=== PATIENT | female | born 1935 | race Caucasian/White ===

== ENCOUNTER 2018-07-19 02:20 | Inpatient (IN) | payer MEDICARE, BC ==
[~2018-07-19] VITALS: Ht 157.5 cm; Wt 39.9 kg
[2018-07-19] VITALS (9 sets, daily range): BP systolic 105–146; BP diastolic 56–66
[2018-07-19] MEDS ORDERED: IPRATRPIUM/ALBUTEROL 0.5/2.5MG 3 ML NEBU. ONE (02:30)
[2018-07-19] MEDS ORDERED: NITROGLYCERIN PREMIX 250 ML IV ONE (02:45)
--- NOTE | 2018-07-19 02:45 | PHYS DOC ---
Adult General Chief Complaint Chief Complaint sob HPI HPI 82 years old female presented to the emergency department or shortness of breath , that she is been followed sick for the past week or shortness of breath got worse tonight upon arrival to the emergency department her oxygen saturation 75 % on room air. She denies any chest pain complaining of dry cough no fever no chills no urgency or frequency no hematuria Review of Systems Review of Systems Constitutional: Denies fever or chills [] Eyes: Denies change in visual acuity, redness, or eye pain [] HENT: Denies nasal congestion or sore throat [] Respiratory: Positive for shortness of breath] Cardiovascular: No additional information not addressed in HPI [] GI: Denies abdominal pain, nausea, vomiting, bloody stools or diarrhea [] : Denies dysuria or hematuria [] Musculoskeletal: Denies back pain or joint pain [] Integument: Denies rash or skin lesions [] Neurologic: Denies headache, focal weakness or sensory changes [] Endocrine: Denies polyuria or polydipsia [] All other systems were reviewed and found to be within normal limits, except as documented in this note. Current Medications Current Medications Current Medications Medications (Trade) Dose Ordered Sig/Manuel Start Time Stop Time Status Last Admin Dose Admin Acetaminophen (Tylenol) 650 mg PRN Q4HRS PRN 07/19/18 03:45 07/20/18 03:44 UNV Albuterol Sulfate (Ventolin) 10 mg 1X ONCE 07/19/18 03:00 07/19/18 03:01 DC Albuterol/ Ipratropium (Duoneb) 3 ml RTQID 07/19/18 08:00 07/20/18 07:59 UNV Furosemide (Lasix) 40 mg 1X ONCE 07/19/18 03:30 07/19/18 03:31 DC Insulin Glargine (Lantus) 20 units QHS 07/19/18 21:00 Insulin Human Regular (HumuLIN R VIAL) 5 unit 1X ONCE 07/19/18 04:00 07/19/18 04:01 Morphine Sulfate (Morphine 2mg Syringe) 2 mg PRN Q2HR PRN 07/19/18 03:45 07/20/18 03:44 UNV Nitroglycerin (Nitrostat) 0.4 mg PRN Q5MIN PRN 07/19/18 03:45 07/20/18 03:44 UNV Nitroglycerin/ Dextrose 250 ml @ 0 mls/hr 1X ONCE 07/19/18 02:45 07/19/18 02:46 DC 07/19/18 02:39 5 MLS/HR Ondansetron HCl (Zofran) 4 mg PRN Q4HRS PRN 07/19/18 03:45 07/20/18 03:44 UNV Allergies Allergies Allergies Coded Allergies Type Severity Reaction Last Updated Verified Penicillins Allergy Unknown 07/19/18 Yes Physical Exam Physical Exam Constitutional: Well developed, well nourished, no acute distress, non-toxic appearance. [] HENT: Normocephalic, atraumatic, bilateral external ears normal, oropharynx moist, no oral exudates, nose normal. [] Eyes: PERRLA, EOMI, conjunctiva normal, no discharge. [] Neck: Normal range of motion, no tenderness, supple, no stridor. [] Cardiovascular: Tachycardia Heart rate regular rhythm, no murmur [] Lungs & Thorax: Crackles bilaterally Abdomen: Bowel sounds normal, soft, no tenderness, no masses, no pulsatile masses. [] Skin: Warm, dry, no erythema, no rash. [] Back: No tenderness, no CVA tenderness. [] Extremities: No tenderness, no cyanosis, no clubbing, ROM intact, no edema. [] Neurologic: Alert and oriented X 3, normal motor function, normal sensory function, no focal deficits noted. [] Psychologic: Affect normal, judgement normal, mood normal. [] Current Patient Data Vital Signs Vital Signs Date Time Temp Pulse Resp B/P (MAP) Pulse Ox O2 Delivery O2 Flow Rate FiO2 07/19/18 02:36 115 24 166/91 (116) 100 BiPAP/CPAP 07/19/18 02:20 97.0 Lab Results Laboratory Tests Test 07/19/18 02:41 White Blood Count 14.0 x10^3/uL (4.0-11.0) H Red Blood Count 4.82 x10^6/uL (3.50-5.40) Hemoglobin 13.7 g/dL (12.0-15.5) Hematocrit 42.7 % (36.0-47.0) Mean Corpuscular Volume 89 fL (79-100) Mean Corpuscular Hemoglobin 28 pg (25-35) Mean Corpuscular Hemoglobin Concent 32 g/dL (31-37) Red Cell Distribution Width 14.4 % (11.5-14.5) Platelet Count 265 x10^3/uL (140-400) Neutrophils (%) (Auto) 79 % (31-73) H Lymphocytes (%) (Auto) 15 % (24-48) L Monocytes (%) (Auto) 4 % (0-9) Eosinophils (%) (Auto) 2 % (0-3) Basophils (%) (Auto) 1 % (0-3) Neutrophils # (Auto) 11.1 x10^3uL (1.8-7.7) H Lymphocytes # (Auto) 2.1 x10^3/uL (1.0-4.8) Monocytes # (Auto) 0.6 x10^3/uL (0.0-1.1) Eosinophils # (Auto) 0.2 x10^3/uL (0.0-0.7) Basophils # (Auto) 0.1 x10^3/uL (0.0-0.2) Blood pH 7.31 (7.35-7.45) L Blood Gas PCO2 36 mmHg (35-45) Blood Gas PO2 111 mmHg (71-100) H Blood Gas HCO3 18 mmol/L (22-26) L Arterial Bld O2 Saturation (Calc) 98 % (92-99) FiO2 60 % Sodium Level 137 mmol/L (136-145) Potassium Level 3.6 mmol/L (3.5-5.1) Chloride Level 102 mmol/L (98-107) Carbon Dioxide Level 19 mmol/L (21-32) L Anion Gap 16 (6-14) H Blood Urea Nitrogen 23 mg/dL (7-20) H Creatinine 1.3 mg/dL (0.6-1.0) H Estimated GFR (Cockcroft-Gault) 39.1 Glucose Level 377 mg/dL (70-99) H Calcium Level 8.5 mg/dL (8.5-10.1) ZT-Rgx-G-Type Natriuretic Peptide 75880 pg/mL (0-449) H EKG EKG Sinus tachycardia[] Radiology/Procedures Radiology/Procedures Congestion[] Course & Med Decision Making Course & Med Decision Making Pertinent Labs and Imaging studies reviewed. (See chart for details) [] Final Impression Final Impression Patient to be admitted to the intensive care unit will continue BiPAP, breathing treatments, nitroglycerin drip, Lasix[] Problems: (1) Acute exacerbation of congestive heart failure Qualifiers: Qualified Codes: I50.9 - Heart failure, unspecified (2) Respiratory failure Qualifiers: Qualified Codes: J96.01 - Acute respiratory failure with hypoxia (3) Respiratory failure with hypoxia Qualifiers: Qualified Codes: J96.01 - Acute respiratory failure with hypoxia Dragon Disclaimer Dragon Disclaimer This electronic medical record was generated, in whole or in part, using a voice recognition dictation system. CHANCE PEREZ MD Jul 19, 2018 02:45
[2018-07-19] MEDS ORDERED: ALBUTEROL SULFATE 2.5 MG/3 ML NEBU. CONT NEB ONE (03:00)
[2018-07-19 03:08] LABS: BASO # 0.1 x10^3/uL (0.0-0.2); BASO % 1 % (0-3); EOS # 0.2 x10^3/uL (0.0-0.7); EOS % 2 % (0-3); HEMATOCRIT 42.7 % (36.0-47.0); HEMOGLOBIN 13.7 g/dL (12.0-15.5); LYMPH # 2.1 x10^3/uL (1.0-4.8); LYMPH % 15 % (24-48); MEAN CORPUSCULAR HEMOGLOBIN 28 pg (25-35); MEAN CORPUSCULAR HGB CONC 32 g/dL (31-37); MEAN CORPUSCULAR VOLUME 89 fL (79-100); MONO # 0.6 x10^3/uL (0.0-1.1); MONO % 4 % (0-9); NEUT # 11.1 x10^3uL (1.8-7.7); NEUT % 79 % (31-73); PLATELET COUNT 265 x10^3/uL (140-400); RED BLOOD COUNT 4.82 x10^6/uL (3.50-5.40); RED CELL DISTRIBUTION WIDTH 14.4 % (11.5-14.5)
--- NOTE | 2018-07-19 03:08 | EKG ---
[address] [address] Test Date: 2018-07-19 Test Time: 03:00:38 Pat Name: RADHA PEPPER Department: Room: Gender: F Draw Operator: : 1935 Requested By: CHANCE PEREZ Order Number: [id number] Reading MD: Mikey Erwin Measurements Intervals [place] Rate: 110 P: 97 IL: 148 QRS: -43 QRSD: 116 T: 109 QT: 348 QTc: 477 Interpretive Statements SINUS TACHYCARDIA LEFT ATRIAL ABNORMALITY ABNORMAL LEFT AXIS DEVIATION LEFT ANTERIOR FASCICULAR BLOCK LVH WITH REPOLARIZATION ABNORMALITY QRS(T) CONTOUR ABNORMALITY CONSISTENT WITH ANTERIOR INFARCT AGE UNDETERMINED ABNORMAL ECG Electronically Signed On 07-23-2018 10:51:08 TRIMMING OPERATOR by Mikey Erwin
[2018-07-19 03:22] LABS: CALCIUM 8.5 mg/dL (8.5-10.1); CREATININE 1.3 mg/dL (0.6-1.0); GFR 39.1; POTASSIUM 3.6 mmol/L (3.5-5.1)
[2018-07-19] MEDS ORDERED: FUROSEMIDE 40 MG/4 ML VIAL IVP ONE (03:30)
[2018-07-19 03:33] LABS: BGAS PH 7.31 (7.35-7.45)
[2018-07-19] MEDS ORDERED: NITROGLYCERIN SUBLINGUAL 0.4 MG BOTTLE OF 25. SL PRN (03:45)
[2018-07-19] MEDS ORDERED: MORPHINE SULFATE 2 MG/ML DISP.SYRIN. IV PRN (03:45)
[2018-07-19] MEDS ORDERED: ONDANSETRON PF 4 MG/2 ML VIAL. IV PRN (03:45)
[2018-07-19] MEDS ORDERED: ACETAMINOPHEN 325 MG TABLET PO PRN (03:45)
[2018-07-19] MEDS ORDERED: INSULIN REGULAR 100 UNIT/ML 3ML VIAL. IV ONE (04:00)
--- NOTE | 2018-07-19 06:50 | RAD ---
Chest radiograph 07/19/2018 1:46 AM INDICATION: Respiratory failure COMPARISON: None available TECHNIQUE: Frontal view of the chest is provided. FINDINGS: The cardiomediastinal silhouette is within normal limits. Trace pleural effusions. No pulmonary vascular congestion. Patchy opacities identified in the right perihilar distribution. Findings may represent pulmonary infiltrate versus pulmonary vasculature. Suspect right hilar lymphadenopathy. Levoconvex scoliosis of the thoracic spine is noted. IMPRESSION: There is a patchy masslike opacity in the right perihilar distribution. Suspect right hilar lymphadenopathy. Findings may be secondary to pneumonia, however underlying malignancy is a differential consideration. Further evaluation with chest CT may be of benefit. Mild pulmonary vascular congestion with trace bilateral pleural effusions as may be seen with congestive heart failure. Electronically signed by: Veronica Wise MD (07/19/2018 6:47 AM) [facility]
[2018-07-19 07:13] LABS: INFLUENZA A PATIENT NEGATIVE (NEGATIVE); INFLUENZA B PATIENT NEGATIVE (NEGATIVE)
[2018-07-19] MEDS: IPRATRPIUM/ALBUTEROL 0.5/2.5MG 3 ML NEBU. NEB SCH ×3 (08:00→16:00)
[2018-07-19 09:11] LABS: CLARITY,URINE CLEAR; COLOR,URINE YELLOW
[2018-07-19 09:12] LABS: BACTERIA,URINE 0 /HPF (0-FEW); BILIRUBIN,URINE NEG (NEG); GLUCOSE,URINE NEG (NEG); HYALINE CASTS, URINE OCC /HPF; NITRITE,URINE NEG (NEG); RBC,URINE 0 /HPF (0-2); UROBILINOGEN,URINE 0.2 mg/dL (0.2 mg/dL); WBC,URINE 0 /HPF (0-4)
--- NOTE | 2018-07-19 10:22 | CONS ---
DATE OF CONSULTATION: 07/19/2018 REASON FOR CONSULTATION: Heart failure. HISTORY OF PRESENT ILLNESS: The patient is a pleasant 82-year-old woman without any significant past medical history, who apparently was struggling with some shortness of breath and cough over the course of the last 2 weeks. She felt that it may have been simply related to a chest cold and was treating this symptomatically. Yesterday evening, she had significant worsening of her shortness of breath, which prompted her to arrive in the ER upon which she was noted to be significantly hypoxic at 75% on room air and was treated appropriately with BiPAP and diuretic therapy. She was also started on low dose nitroglycerin therapy due to some mild hypertension. In speaking with the patient, she reports over the course of the last 2-4 weeks, she has had some exertional dyspnea with activities around the house such as shoveling snow or doing some cleaning. She otherwise denies any prior cardiac history. Upon arrival to the floor, she has done well overnight after being transitioned off of BiPAP. She is currently on 2 liters via nasal cannula and saturating well. Her IV diuretics have also improved her symptoms. PAST MEDICAL HISTORY: No significant history. SOCIAL HISTORY: The patient lives in [place]. She denies any alcohol, tobacco or illicit drug use. She has 1 son and several daughters in the area. FAMILY HISTORY: Noncontributory. ALLERGIES: PENICILLIN. REVIEW OF SYSTEMS: Negative for 10 out of 14 systems reviewed, unless otherwise mentioned above in HPI. CURRENT CARDIAC MEDICATIONS: None. PHYSICAL EXAMINATION: VITAL SIGNS: Afebrile, heart rate 100, respiratory rate 19, blood pressure 110/60, pulse ox 96% on 2 liters via nasal cannula. GENERAL: She is hard of hearing, but otherwise alert and oriented, in no acute distress. She is mildly tachypneic. HEAD AND NECK: Unremarkable. Neck veins were not well visualized. HEART: Regular rate and rhythm with a 3/6 systolic murmur at the right upper sternal border and 2/6 systolic murmur at the left lower sternal border. ABDOMEN: Soft, nontender, nondistended. EXTREMITIES: No obvious clubbing, cyanosis or edema with 1+ pulses throughout. NEUROLOGIC: No focal deficits. MUSCULOSKELETAL: No obvious trauma. DIAGNOSTIC STUDIES: Creatinine 1.3, GFR 39. BNP is 10,327. Troponin initial evaluation was 0.224. ABG was 7.31/36/111 on FiO2 of 60%. CBC revealed normal hemoglobin and platelet count. Chest x-ray demonstrated small bilateral pleural effusions with patchy airspace disease in the right perihilar space. Bedside echocardiogram demonstrated significant LV dysfunction with ejection fraction estimated to be about 20-25%. She likely also has moderate aortic stenosis with a peak velocity of approximately 3 meters per second. EKG demonstrates sinus tachycardia with left axis deviation and left ventricular hypertrophy along with prior probable anteroseptal infarct. IMPRESSION: 1. Acute on chronic systolic and diastolic heart failure, likely secondary to ischemic cardiomyopathy. 2. Rule out infectious source as a source of her dyspnea. RECOMMENDATIONS: Given her lack of any significant prior cardiac history, new onset cardiomyopathy would be appropriate to consider coronary angiography. I discussed the risks and benefits with the patient and we will plan for transfer to [facility] for a cardiac catheterization tomorrow after optimization of her medical therapy and volume status over the next 24 hours. Thank you for this consultation. MAKENNA STANTON MD DR: ELIZABETH/raphael JOB#: [id number] / [id number]
--- NOTE | 2018-07-19 11:36 | SSS ---
ADMIT DATE: 07/19/2018 HISTORY OF PRESENT ILLNESS: The patient is an 82-year-old female patient who last saw her primary care physician about 3 years ago for a visit. She is not on any medication except multivitamins [id number]. She started complaining of shortness of breath and cough that she attributes to her cold that started about a week ago. At 2:00 in the morning, her shortness of breath has worsened. She went out of her house for breeze, but her shortness of breath has worsened and she basically drove herself to the Emergency Room. By the time she arrived to the Emergency Room, she was extremely hypoxic with an oxygen saturation of only 75% on room air. However, she denied any chest pain. Did complain of dry cough. No fever, chills, or rigors. She was extensively investigated in the Emergency Room and was found to have leukocytosis with a white cell count of 14,000. Her chest x-ray showed that there is a patchy mass-like opacity in the right perihilar distribution, suspect right hilar lymphadenopathy. Finding may be secondary to pneumonia; however, underlying malignancy is a differential consideration and further evaluation with chest x-ray was recorded. Mild pulmonary vascular congestion with trace bilateral pleural effusion as may be seen with congestive heart failure. Her cardiac enzyme showed that her troponin was elevated at 0.224. She was basically acidotic. Her blood sugar was high at 377. Lactic acid was high at 3 and her blood gases showed that she is in acute hypoxic. She actually showed that she has metabolic acidosis with a pH of 7.31 and bicarbonate of 18. Her Influenza A and B are negative. Urinalysis was unremarkable and she seemed to be in what seemed to be mild diabetic ketoacidosis as her anion gap is slightly elevated at 16 and her lactic acid was high at 33 with the blood sugar of 377. She was admitted and was started on IV antibiotic and also in the form of Levaquin as she is allergic to PENICILLIN and started also on insulin as well as nebulized albuterol and Atrovent. She was seen by Dr. Hu who apparently did an echocardiogram, which showed that she has cardiomyopathy and aortic stenosis and the plan was to transfer her to [facility] for cardiac catheterization; however, she would need obviously CT scan of the chest to further elucidate the finding on her chest x-ray. PAST MEDICAL HISTORY: Unremarkable. The patient did not know that she has ever been diagnosed with diabetes, hypertension, or hyperlipidemia. She has never had any documented myocardial infarction. She said she has never been told that she has problem with her heart valves or rheumatic fever. PAST SURGICAL HISTORY: Significant for only dental implants. ALLERGIES: She is allergic to PENICILLIN. MEDICATIONS: She is on [id number] multivitamins and fish oil. FAMILY HISTORY: She has 2 sisters and 1 brother. Her brother has bronchial asthma, 1 sister has anxiety disorder, and the other sister is seemingly healthy. Her father at the age of 60 because of liver cancer and mother at the age of 60 because of gallbladder cancer. SOCIAL HISTORY: She is , lives on her own. She has 1 son and 2 daughters. She never smoked. Drinks half a glass of wine once a week. 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 PHYSICAL EXAMINATION: GENERAL: On examining her, she was sitting up in her bed, in no apparent respiratory distress. The only complaint offered is back pain. She denied actually any chest pain or shortness of breath. She was pale, extremely cachectic with a body mass index only 16.1 kilogram per square meter. There was no jaundice, no cyanosis, no lymphadenopathy, no thyromegaly. No jugular venous distention. No lower limb edema. VITAL SIGNS: Her heart rate was 100, blood pressure was 110/66, temperature was 97.7, respiratory rate was 19 and oxygen saturation was 96% on 2 liters of oxygen. HEAD, EYES, EARS, NOSE, AND THROAT: Showed normocephalic, atraumatic. NECK: Supple. HEART: Showed normal first and second heart sounds with no gallop, rub, or murmur. CHEST: Showed central trachea, equally reduced expansion, reduced air entry, vesicular breath sounds with crepitation mostly in the left side. ABDOMEN: Her abdomen was scaphoid, soft, nontender. No guarding or rigidity. No organomegaly. All hernial orifices intact. Bowel sounds normal. NEUROLOGIC: She is very hard of hearing. Otherwise, all cranial nerves are intact. She moves all extremities without difficulty. She ambulates without assistance or assistive devices. In fact, she drove herself to the hospital early this morning. LABORATORY DATA: Her lab work showed that her serum sodium was 137, potassium 3.6, chloride 102, bicarbonate 19, anion gap of 16, BUN 23, creatinine 1.3, estimated GFR was 39 mL per minute. His glucose was 377, calcium was 8.5. His lactic acid was 3. Calcium was 8.5. Troponin was 0.224. His beta-natriuretic peptide was 10,327. Her white cell count was 14,000, hemoglobin 13.7, hematocrit 42.7, MCV 89, and platelet count 265,000. Her blood gases showed her pH was 7.31, pCO2 of 36, pO2 of 111. Her bicarbonate was 18 and oxygen saturation was 98% on FiO2 of 60%. Urinalysis was unremarkable. It showed the urine was yellow, clear with a pH of 5, specific gravity of 1.010. The urine was negative for protein, glucose, ketones, blood, nitrite, and leukocyte esterase. There are no RBCs, no WBCs, and very few bacteria. His influenza A and B were negative. Her chest x-ray showed that the cardiomediastinal silhouette is within normal limits. Trace pleural effusion. No pulmonary vascular congestion. Patchy opacities identified in the right perihilar distribution. Finding may represent pulmonary infiltrate versus pulmonary vasculature, suspect right hilar lymphadenopathy. Levoconvex scoliosis of the thoracic spine is noted. IMPRESSION: The patient has a patchy mass-like opacity in the right perihilar distribution, suspect right hilar lymphadenopathy. Findings may be secondary to pneumonia; however, underlying malignancy is a differential consideration. Further evaluation with chest CT may be of benefit. Mild pulmonary vascular congestion with trace bilateral pleural effusion as may be seen with congestive heart failure. PLAN: The patient has metabolic acidosis with probably lactic acidosis and perhaps also mild diabetic ketoacidosis. She has pneumonia, cardiomyopathy, congestive heart failure, and aortic stenosis. The patient will be transferred to ICU at [facility]. We will continue with IV antibiotic. I will start her on insulin drip and also consult the cardiology team and decide on further management accordingly. MOON SALAS MD DR: RUDY/raphael JOB#: [id number] / [id number]
[2018-07-19 19:06] LABS: HEMOGLOBIN A1C 5.7 % (4.8-5.6)
[2018-07-19] MEDS ORDERED: INSULIN GLARGINE 300 UNITS/3 ML INSULN.PEN. SQ SCH (21:00)
== END 2018-07-19 17:19 | disposition short-term general hospital (02) | DRG 871 ==
LOC: ER 02:20 → ICU 03:23
PROVIDERS: ADMIT Internal Medicine; ATTEND Internal Medicine
PROC: 5A09357 Assistance with Respiratory Ventilation, Less than 24 Consecutive Hours, Continuous Positive Airway Pressure (ICD-10-PCS; principal; 2018-07-19)
DX: A41.9 Sepsis, unspecified organism (principal); E11.10 Type 2 diabetes mellitus with ketoacidosis without coma; J18.9 Pneumonia, unspecified organism; J96.01 Acute respiratory failure with hypoxia; I50.43 Acute on chronic combined systolic (congestive) and diastolic (congestive) heart failure; I11.0 Hypertensive heart disease with heart failure; D72.829 Elevated white blood cell count, unspecified; I25.5 Ischemic cardiomyopathy; I35.0 Nonrheumatic aortic (valve) stenosis; Z80.0 Family history of malignant neoplasm of digestive organs; Z79.899 Other long term (current) drug therapy; Z88.0 Allergy status to penicillin; Z82.5 Family history of asthma and other chronic lower respiratory diseases
CPT/HCPCS: 36415; 36600; 71045; 80048; 81001; 82803; 82947; 83036; 83605; 83880; 84484; 85025; 87040; 87449; 87641; 87804; 93005; 94640; 94660; 96365; 96375; J1815; J1940; J1956; J3490; J7613; J7620; 99285-25

== ENCOUNTER → 2018-10-11 | Outpatient (CLI) | payer MEDICARE, BC ==
[2018-07-19 16:33] VITALS: BP 116/57
--- NOTE | 2018-10-11 13:03 | RAD ---
EXAM: Chest, 2 views. HISTORY: Cough. COMPARISON: 07/19/2018 FINDINGS: 2 views of the chest are obtained. There is no infiltrate, pleural effusion or pneumothorax. There is a prominent cardiac silhouette and tortuous thoracic aorta. There is suspected right apical pleural parenchymal scarring. There are few calcified granulomas. There is hyperinflation due to inspiratory effort or emphysema. IMPRESSION: No acute pulmonary finding. Electronically signed by: Stefany Spicer MD (10/11/2018 1:00 PM) [facility]
[2018-10-11 14:46] LABS: BASO % 1 % (0-3); EOS # 0.1 x10^3/uL (0.0-0.7); EOS % 2 % (0-3); HEMATOCRIT 40.9 % (36.0-47.0); HEMOGLOBIN 13.3 g/dL (12.0-15.5); LYMPH % 24 % (24-48); MEAN CORPUSCULAR HEMOGLOBIN 29 pg (25-35); MEAN CORPUSCULAR HGB CONC 33 g/dL (31-37); MEAN CORPUSCULAR VOLUME 89 fL (79-100); MONO # 1.1 x10^3/uL (0.0-1.1); MONO % 13 % (0-9); NEUT # 5.2 x10^3uL (1.8-7.7); NEUT % 61 % (31-73); PLATELET COUNT 232 x10^3/uL (140-400); RED BLOOD COUNT 4.62 x10^6/uL (3.50-5.40); RED CELL DISTRIBUTION WIDTH 14.9 % (11.5-14.5); WHITE BLOOD COUNT 8.4 x10^3/uL (4.0-11.0)
[2018-10-11 15:09] LABS: CALCIUM 10.6 mg/dL (8.5-10.1); CREATININE 1.4 mg/dL (0.6-1.0); GFR 35.8; POTASSIUM 3.5 mmol/L (3.5-5.1)
== END | disposition home or self-care (01) ==
LOC: LAB 12:31
PROVIDERS: ATTEND Family Medicine
DX: I11.0 Hypertensive heart disease with heart failure (principal); I50.43 Acute on chronic combined systolic (congestive) and diastolic (congestive) heart failure; J84.10 Pulmonary fibrosis, unspecified; I77.1 Stricture of artery
CPT/HCPCS: 36415; 71046; 80048; 83880; 85025

== ENCOUNTER → 2019-05-01 | Outpatient (CLI) | payer MEDICARE, BC ==
[2018-07-19 16:33] VITALS: BP 116/57
--- NOTE | 2019-05-02 13:07 | CARD ---
MR#: [id number] Date of Study: 05/01/2019 Ordering Physician: MAKENNA STANTON, Referring Physician: MAKENNA STANTON, Tech: Rebeca Espinal DEVANTE APPROVED REPORT EXAM: Two-dimensional and M-mode echocardiogram with Doppler and color Doppler. Other Information Quality : GoodHR: 77bpm Rhythm : NSR INDICATION Cardiomyopathy 2D DIMENSIONS RVDd2.5 (2.9-3.5cm)Left Atrium(2D)3.0 (1.6-4.0cm) IVSd1.0 (0.7-1.1cm)Aortic Root(2D)3.0 (2.0-3.7cm) LVDd4.8 (3.9-5.9cm)LVOT Diameter2.0 (1.8-2.4cm) PWd0.9 (0.7-1.1cm)LVDs3.7 (2.5-4.0cm) FS (%) 22.0 %SV47.5 ml LVEF(%)44.4 (>50%) M-Mode DIMENSIONS Aortic Root2.93 (2.2-3.7cm) Aortic Valve AoV Peak Balta.173.1cm/sAoV VTI36.4cm AO Peak GR.12.0mmHgLVOT Peak Balta.87.0cm/s LVOT VTI 18.57cmAO Mean GR.6mmHg ROGER (VMAX)1.58ya5KXY (VTI)1.57cm2 AI P 1/2 Iziw263pi Mitral Valve MV E Kslnmsqa40.7cm/sMV DECEL MKIC820vw MV A Przwimgf50.3cm/sE/A Ratio0.8 Pulmonary Valve PV Peak Akuussay078.2cm/sPV Peak Grad.5mmHg Tricuspid Valve TR P. Otuurlel471pu/sRAP CPOWRWXW2nsAp TR Peak Gr.30eoUjBXFE04jiUz LEFT VENTRICLE The left ventricle is normal size. There is normal left ventricular wall thickness. The left ventricu lar systolic function is moderately impaired. The Ejection Fraction is 35-40%. There is global hypoki nesis of the left ventricle. Transmitral Doppler flow pattern is Grade I-abnormal relaxation pattern. RIGHT VENTRICLE The right ventricle is normal size. There is normal right ventricular wall thickness. The right ventr icular systolic function is normal. ATRIA The left atrium size is normal. The right atrium size is normal. The interatrial septum is intact wit h no evidence for an atrial septal defect or patent foramen ovale as noted on 2-D or Doppler imaging. AORTIC VALVE The aortic valve is thickened but opens well. The aortic valve is trileaflet. Doppler and Color Flow revealed moderate aortic regurgitation. There is no significant aortic valvular stenosis. There is no aortic valvular vegetation. MITRAL VALVE The mitral valve is thickened but opens well. There is no evidence of mitral valve prolapse. There is no mitral valve stenosis. Doppler and Color-flow revealed trace mitral regurgitation. TRICUSPID VALVE The tricuspid valve is normal in structure and function. Doppler and Color Flow revealed trace tricus pid regurgitation. The PA pressure was estimated at 22 mmHg. There is no tricuspid valve prolapse or vegetation. There is no tricuspid valve stenosis. PULMONIC VALVE The pulmonic valve is not well visualized. GREAT VESSELS The aortic root is normal in size. 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 The IVC is normal in size and collapses >50% with inspiration. PERICARDIAL EFFUSION There is no evidence of significant pericardial effusion. Critical Notification Critical Value: No <Conclusion> The left ventricular systolic function is moderately impaired. The Ejection Fraction is 35-40%. Transmitral Doppler flow pattern is Grade I-abnormal relaxation pattern. Moderate aortic regurgitation. Trace mitral regurgitation. Trace tricuspid regurgitation. The PA pressure was estimated at 22 mmHg. 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 There is no evidence of significant pericardial effusion. Signed by : Mikey Erwin, Electronically Approved : 05/01/2019 13:41:19
== END | disposition home or self-care (01) ==
LOC: ECHO 12:43
PROVIDERS: ATTEND Internal Medicine Cardiovascular Disease
DX: I35.1 Nonrheumatic aortic (valve) insufficiency (principal); I42.8 Other cardiomyopathies; I42.9 Cardiomyopathy, unspecified
CPT/HCPCS: 93306

== ENCOUNTER 2021-02-04 05:59 | Emergency (ER) | payer MEDICARE, BC ==
[~2021-02-04] VITALS: Ht 157.5 cm; Wt 38.1 kg
[2021-02-04 05:59] VITALS: BP 132/77
[2021-02-04] MEDS ORDERED: ATROPINE SULFATE 1 MG VIAL ONE ×2 (06:02→06:30)
--- NOTE | 2021-02-04 06:20 | PHYS DOC ---
Past History Past Medical History: Other Past Surgical History: Other Alcohol Use: None Drug Use: None Adult General HPI HPI Patient is a 85-year-old female presenting in cardiac arrest. Nothing is known about patient. She was found in ER parking lot facedown in pool of blood. Was found by ER staff and brought into ER for evaluation, is nonverbal, GCS 3. Initially bradycardic with a pulse, later deteriorated into PEA and CODE BLUE ensued Review of Systems Review of Systems Unobtainable due to cardiac arrest Current Medications Current Medications Current Medications Medications (Trade) Dose Ordered Sig/Manuel Start Time Stop Time Status Last Admin Dose Admin Atropine Sulfate (Atropine Sulfate) 1 mg STK-MED ONCE 02/04/21 06:02 02/04/21 06:02 DC Allergies Allergies Allergies Coded Allergies Type Severity Reaction Last Updated Verified Penicillins Allergy Unknown 07/19/18 Yes Physical Exam Physical Exam Constitutional: GCS 3. Toxic appearing. Malnourished and frail HEENT: Head: Normocephalic with mild hematoma to left forehead TMs clear, no hemotympanum Conjunctivae and EOM are normal. Pupils are equal, round, and minimally reactive to light. Oropharynx is clear and dry with poor dentition OP clear, no blood, no malocclusion, dentition intact Nares clear, no nasal septal hematoma Midface stable Neck: C-spine midline nontender, no step-offs Cardiovascular: Bradycardic rate, regular rhythm and normal heart sounds. Pulmonary/Chest: Lips cyanotic, initial oxygen reading 69% on room air, agonal breaths Abdominal: Soft. Bowel sounds are normal. Pt exhibits no distension. There is no tenderness. Musculoskeletal: No bony tenderness to extremities, no deformities, full passive ROM extremities Chest wall stable Pelvis stable and non-tender No vertebral TTP and spine without stepoffs Neurological: GCS 3 Not moving all extremities willfully, is not able to wiggle all fingers and toes or follow other commands Downgoing toes bilaterally Unable to participate in full neuro examination Skin: Skin is warm and dry. No superficial abrasion noted to left anterior shoulder, left forehead as noted above, and right hand Psychiatric: Behavior is appropriate for situation Current Patient Data Vital Signs Vital Signs Date Time Temp Pulse Resp B/P (MAP) Pulse Ox O2 Delivery O2 Flow Rate FiO2 02/04/21 05:59 93.6 30 9 132/77 (95) 30 Room Air Vital Signs Date Time Temp Pulse Resp B/P (MAP) Pulse Ox O2 Delivery O2 Flow Rate FiO2 02/04/21 05:59 93.6 30 9 132/77 (95) 30 Room Air Lab Results Laboratory Tests Test 02/04/21 06:01 02/04/21 06:03 02/04/21 06:28 02/04/21 06:45 Glucose (Fingerstick) 95 mg/dL Sodium Level 146 mmol/L Potassium Level 4.2 mmol/L Chloride Level 108 mmol/L Carbon Dioxide Level 17 mmol/L Anion Gap 21 Blood Urea Nitrogen 16 mg/dL Creatinine 1.5 mg/dL Estimated GFR (Cockcroft-Gault) 32.9 BUN/Creatinine Ratio 11 Glucose Level 186 mg/dL Calcium Level 9.4 mg/dL Total Bilirubin 0.3 mg/dL Aspartate Amino Transf (AST/SGOT) 28 U/L Alanine Aminotransferase (ALT/SGPT) 34 U/L Alkaline Phosphatase 88 U/L Troponin I Quantitative 0.029 ng/mL TD-Ged-S-Type Natriuretic Peptide 28571 pg/mL Total Protein 7.3 g/dL Albumin 3.5 g/dL Albumin/Globulin Ratio 0.9 Urine Opiates Screen Neg Urine Methadone Screen Neg Urine Barbiturates Neg Urine Phencyclidine Screen Neg Urine Amphetamine/Methamphetamine Neg Urine Benzodiazepines Screen Neg Urine Cocaine Screen Neg Urine Cannabinoids Screen Neg Urine Ethyl Alcohol Neg White Blood Count 8.1 x10^3/uL Red Blood Count 3.35 x10^6/uL Hemoglobin 9.9 g/dL Hematocrit 31.6 % Mean Corpuscular Volume 94 fL Mean Corpuscular Hemoglobin 30 pg Mean Corpuscular Hemoglobin Concent 31 g/dL Red Cell Distribution Width 15.8 % Platelet Count 173 x10^3/uL Neutrophils (%) (Auto) 38 % Lymphocytes (%) (Auto) 53 % Monocytes (%) (Auto) 6 % Eosinophils (%) (Auto) 3 % Basophils (%) (Auto) 1 % Neutrophils # (Auto) 3.1 x10^3uL Lymphocytes # (Auto) 4.3 x10^3/uL Monocytes # (Auto) 0.5 x10^3/uL Eosinophils # (Auto) 0.2 x10^3/uL Basophils # (Auto) 0.1 x10^3/uL Segmented Neutrophils % 30 % Band Neutrophils % 2 % Lymphocytes % 64 % Monocytes % 2 % Eosinophils % 1 % Metamyelocytes % 1 % Platelet Estimate Adequate Prothrombin Time 12.4 SEC Prothromb Time International Ratio 1.2 Activated Partial Thromboplast Time 35 SEC Test 02/04/21 07:35 Blood Gas pH 7.26 Blood Gas PCO2 31 mmHg Blood Gas PO2 94 mmHg Blood Gas HCO3 14 mmol/L Arterial Bld O2 Saturation (Calc) 97 % FiO2 50 % Current Medications Medications (Trade) Dose Ordered Sig/Manuel Route PRN Reason Start Time Stop Time Status Last Admin Dose Admin Atropine Sulfate (Atropine Sulfate) 1 mg STK-MED ONCE .ROUTE 02/04/21 06:02 02/04/21 06:02 DC Iohexol (Omnipaque 300 Mg/ml) 75 ml 1X ONCE IV 02/04/21 06:45 02/04/21 06:46 DC 02/04/21 06:45 Info (Do NOT chart on this entry -- for MONITORING) 1 each PRN DAILY PRN MC SEE COMMENTS 02/04/21 06:45 02/06/21 06:44 Midazolam HCl (Versed) 5 mg STK-MED ONCE .ROUTE 02/04/21 07:04 02/04/21 07:05 DC Midazolam HCl 50 mg/Sodium Chloride 50 ml @ 1 mls/hr 1X ONCE IV 02/04/21 07:30 02/06/21 09:29 Fentanyl Citrate 30 ml @ 2.5 mls/hr CONT PRN IV SEVERE PAIN 7-10 02/04/21 07:30 Furosemide (Lasix) 40 mg 1X ONCE IVP 02/04/21 08:30 02/04/21 08:35 DC EKG EKG Initial EKG ordered and interpreted by myself at 0603 hrs. as sinus bradycardia at 28 bpm, QT 588, otherwise intervals unremarkable, left axis deviation, T wave inversion noted in lead aVL, no STEMI Subsequent EKG after ROSC obtained ordered and interpreted by myself as sinus tachycardia with a rate of 118 bpm, unremarkable intervals, left axis deviation, T wave inversion noted in lead aVL and V5, no STEMI Repeat EKG ordered and interpreted by myself at 0808 hrs. as sinus rhythm at 99 bpm, prolonged QTC at 488 otherwise unremarkable intervals, left axis deviation, T wave inversions noted in lead I, aVL, V5 and V6. No STEMI Radiology/Procedures Radiology/Procedures XR CHEST 1V History: Reason: cardiac arrest, intubated, et and og placement / Spl. Instructions: / History: Comparison: October 11, 2018 Findings: Diffuse interstitial and alveolar opacities. Small left pleural effusion. No pneumothorax. Unchanged heart size. Biapical pleural thickening, right greater than left. Multilevel thoracolumbar spondylosis with rightward curvature. Endotracheal tube with tip 5.3 cm above the byron. Enteric tube with tip projecting over the proximal stomach and side port within the distal esophagus. Impression: 1. Diffuse interstitial and alveolar opacities, may represent pulmonary edema or infection. 2. Interval placement of enteric tube with tip projecting over the proximal stomach and side port within the distal esophagus. Recommend advancement. Electronically signed by: Familia Dixon DO (02/04/2021 6:49 AM) [facility] ////////////////////////////////////// STUDY: CT head and cervical spine without contrast INDICATION: Unwitnessed fall. Forehead hematoma. COMPARISON: None. TECHNIQUE: Axial CT imaging through the head and cervical spine without the use of intravenous contrast. Sagittal and coronal reformats were obtained. One or more of the following individualized dose reduction techniques were utilized for this examination: 1. Automated exposure control 2. Adjustment of the mA and/or kV according to patient size 3. Use of iterative reconstruction technique. FINDINGS: CT head: Study degradation in part on account of motion. No acute intracranial hemorrhage. No mass effect, midline shift or hydrocephalus. No CT evidence for an acute cortical infarction. White matter findings which are nonspecific but most frequently on account of chronic microvascular ischemic change. Intracranial calcific atherosclerosis. Left scalp injury with a localized hematoma at the left frontal region. No depressed calvarial fracture. CT cervical spine: Mild motion degradation. Noting osteopenia no acute cervical spine fracture. Reversal of cervical lordosis centered at C4-C5. Severe discogenic arthrosis at C4-C5. Less pronounced discogenic arthrosis at C3-C4, C5-C6 and C6-C7. Grade 1 anterolisthesis of C3 on C4. Multilevel facet arthrosis and uncovertebral joint hypertrophy. No evidence for severe central canal stenosis. No paraspinous hematoma. Nasogastric and endotracheal intubation. IMPRESSION: CT head: 1. Motion degradation. Diagnostic utility is mostly maintained. 2. Scalp injury on the left without an associated depressed calvarial fracture or acute intracranial hemorrhage. CT cervical spine: 1. Mild motion degradation. Taking this into consideration in addition to osteopenia no acute fracture. No paraspinous hematoma is identified to suggest occult osseous injury. 2. Multilevel spondylosis greatest at C4-C5. No evidence for severe central canal stenosis. Electronically signed by: LOU SANTIZO MD (02/04/2021 7:32 AM) [facility] ////////////////////////////// EXAMINATION: CT chest, abdomen and pelvis with IV contrast. INDICATION:85 years, Female, falling down, left for head hematoma. Evaluate for intrathoracic and abdominal injury. TECHNIQUE: Axial CT images of the chest, abdomen and pelvis were obtained. Coronal and sagittal reformatted performed. COMPARISON: None. Exposure: One or more of the following individualized dose reduction techniques were utilized for this examination: 1. Automated exposure control 2. Adjustment of the mA and/or kV according to patient size 3. Use of iterative reconstruction technique. FINDINGS: CHEST: Visualized thyroid and esophagus are unremarkable. Enteric tube seen within the esophagus with the tip terminates within the proximal stomach. Cardiomegaly with trace pericardial effusion. Mild coronary artery atherosclerotic calcifications. Ascending aortic aneurysm measures up to 5.0 cm. Mild atherosclerotic calcifications of the thoracic aorta. Pulmonary artery is normal in caliber. No intrathoracic lymphadenopathy by size criteria. Few calcified mediastinal lymph nodes. Endotracheal tube tip locates above the byron. Central airways are patent. Moderate right and small left pleural effusions with associated compressive atelectasis. Diffuse interlobular septal thickening with a mosaic attenuation and groundglass opacities, particularly in the left upper lobe. Bibasilar subsegmental atelectasis. No suspicious pulmonary nodule. Diffuse bronchial wall thickening in the lower lobes. No pneumothorax. ABDOMEN/PELVIS: No hepatomegaly. Normal homogeneous enhancement of the liver with no suspicious focal hepatic lesion. Moderate periportal edema. Unremarkable gallbladder. No biliary ductal dilation. Calcified granulomas in the spleen. Moderate atrophic pancreatic parenchyma. Nodular thickening of the left gland without discrete nodule. The right adrenal gland is normal. No hydronephrosis or nephrolithiasis in either kidney. Moderate aortoiliac atherosclerotic calcifications. No significant luminal narrowing or dilation. Distended intrahepatic IVC. Portal vein and mesenteric arteries are patent. No abdominopelvic lymphadenopathy by size criteria. Small abdominal ascites. No pneumoperitoneum. No bowel obstruction or wall thickening. Underdistended urinary bladder with Blackman's catheter in place and nondependent gas. Unremarkable uterus. No suspicious pelvic masses. MUSCULOSKELETAL: Lucent line in the lateral aspect of the left third rib (series 4 image 25). Diffuse osteopenia. Severe multilevel degenerative changes in the spine. Moderate dextroscoliosis of lumbar spine. IMPRESSION: 1. Lucent line along the lateral aspect of the left third rib, may be artifactual from motion artifact or nondisplaced fracture. Consider correlation with point of tenderness. 2. Otherwise, no acute traumatic injury to the chest, abdomen or pelvis. 3. Findings of fluid overload with moderate to severe pulmonary edema, moderate right and small left pleural effusions, periportal edema and trace amount of abdominal ascites. Underlying pneumonia in left upper lobe cannot be excluded. 4. Ascending aortic aneurysm measures up to 5.0 cm in diameter. 5. Other chronic/incidental finding, as described above. Electronically signed by: Lola Anton MD (02/04/2021 7:53 AM) [id number] DICTATED AND SIGNED BY: LOLA ANTON MD DATE: 02/04/21729 Heart Score C/O Chest Pain: N/A HEART Score for Chest Pain: HEART Score for Chest Pain Response (Comments) Value History Highly Suspicious 2 ECG Nonspecific Repolarizatio 1 Age > 65 2 Risk Factors >3 Risk Factors or Hx CAD 2 Troponin >3 x Normal Limit 2 Total 9 Risk Factors: Risk Factors: DM, Current or recent (<one month) smoker, HTN, HLP, family history of CAD, obesity. Risk Scores: Risk Factors: DM, Current or recent (<one month) smoker, HTN, HLP, family history of CAD, obesity. Course & Med Decision Making Course & Med Decision Making CCTV at ER found patient backing in and out of several parking spots, appeared confused. Self extricated vehicle and appeared to be off balance falling forward onto left anterior head at 0555 hours. Patient found and recovered by ER staff at 0556 & immediately transported inside for evaluation Ill-appearing patient presented with patent airway, agonal breathing, bilateral AC IVs and right tibial IO obtained. Vitals later obtained concerning for marked bradycardia (28bpm), hypothermic (93.6F rectal) and hypoxia on room air (62%) GCS 3. 1 mg atropine administered. Lost pulse when placing cardiac pads and CODE BLUE ensued. Patient intubated on first attempt with glidoscope without complications. Patient coded less than 20mins, X2 doses of epinephrine, x1 amp bicarb administered, with ROSC obtained. A total of 2 L IV normal saline administered. Epinephrine drip started. ROSC protocol ensued with grossly unremarkable CT imaging and follow-up EKG Finally contacted son, he is poor historian. States patient sees Dr. Hu for unknown cardiac issues, is on an unknown blood thinner medication, no other history elicited. Admits patient lives home alone and is completely independent, last contact was text good night yesterday at 2100hrs He admits patient is a full code. I updated him on severity of situation and critical status of patient with poor prognosis. He is amenable for hospital transport to [facility] for higher acuity of care. Wanting to defer central venous line placement at present time I contacted hospitalist at [facility] and discussed need for transfer, Dr. Moreno accepted patient under his care. We reviewed case, agreed patient is likely fluid overloaded given IV fluids administered during resuscitation, 40 mg IV Lasix administered Patient remains on ventilator. 2 mg push of Versed initially required; otherwise, has not required any sedation. Fentanyl used for pain control. Remains on epinephrine drip to keep MAP >65 2 mg IV Versed and 50 mcg IV fentanyl administered prior to EMS transfer to [facility] for admission Critical Care Time This patient required critical care. Due to the fact that the patient required a significant amount of one on one physician - patient contact time, ordering and review of studies, arranging urgent treatment with development of a management plan, evaluation of patients response to treatment with frequent reassessments, and discussions with other providers this patient required 70 minutes of critical care time. Critical care time was indicated due to the inherent instability and/or potential for instability in this patient. The critical care time that is allocated to this patient is above and beyond any time spent on any other billable procedures performed on this patient. Dragon Disclaimer Dragon Disclaimer This electronic medical record was generated, in whole or in part, using a voice recognition dictation system. Intubation Intubation : Intubation Method: orotracheal Tube Size (cm): 7.5 Breath Sounds after Intubation: equal Intubation Complications: no complications Progress GCS 3, not protecting airway. Son contacted and confirmed patient was full CODE STATUS. Decision made to intubate patient. No medications were required given clinical presentation. 7.5 ETT and glydoscope 3 blade used to intubate patient, tube was successfully seen passing through bilateral cords on first attempt, cuff inflated, positive color change on CO2 detector, bilateral breath sounds on auscultation, subsequent chest x-ray performed after ROSC obtained confirmed adequate placement of ETT. Time of procedure was less than 15 seconds. There was no reported nor observed complications Departure Departure: Impression: Primary Impression: Cardiac arrest Additional Impressions: Fall Acute respiratory failure with hypoxia Abrasion head Abrasion hand Fluid overload, unspecified Anemia Ascending aortic aneurysm Disposition: 02 [facility] ([facility]) Admitting Physician: Other (dr moreno) Condition: CRITICAL Referrals: DIAMANTE AKINS MD (PCP) Problem Qualifiers BANDAR LENZ DO Feb 04, 2021 06:20
[2021-02-04] MEDS ORDERED: EPINEPHrine SYRINGE 1 MG/10 ML SYRINGE ONE (06:30)
[2021-02-04] MEDS ORDERED: NORMAL SALINE ONE (06:30)
[2021-02-04] MEDS ORDERED: MIDAZOLAM HCL PF 5 MG/5 ML VIAL. ONE ×2 (06:30→07:04)
[2021-02-04] MEDS ORDERED: SODIUM BICARB ADULT 8.4% 50 MEQ/50 ML DISP.SYRIN. ONE (06:30)
[2021-02-04] MEDS ORDERED: CONTRAST GIVEN. MC PRN (06:45)
[2021-02-04] MEDS ORDERED: IOHEXOL 300 MG/ML 75 ML VIAL. IV ONE (06:45)
[2021-02-04 06:47] LABS: CALCIUM 9.4 mg/dL (8.5-10.1); CREATININE 1.5 mg/dL (0.6-1.0); GFR 32.9; POTASSIUM 4.2 mmol/L (3.5-5.1)
[2021-02-04 06:48] LABS: BARBITURATES NEG (NEG); BENZODIAZEPINES NEG (NEG); CANNABINOIDS NEG (NEG); COCAINE NEG (NEG); METHADONE NEG (NEG); OPIATES NEG (NEG); PHENCYCLIDINE NEG (NEG)
[2021-02-04 06:49] LABS: AMPHETAMINE/METHAMPHETAMINE NEG (NEG)
--- NOTE | 2021-02-04 06:51 | RAD ---
XR CHEST 1V History: Reason: cardiac arrest, intubated, et and og placement / Spl. Instructions: / History: Comparison: October 11, 2018 Findings: Diffuse interstitial and alveolar opacities. Small left pleural effusion. No pneumothorax. Unchanged heart size. Biapical pleural thickening, right greater than left. Multilevel thoracolumbar spondylosi s with rightward curvature. Endotracheal tube with tip 5.3 cm above the byron. Enteric tube with tip projecting over the proxima l stomach and side port within the distal esophagus. Impression: 1. Diffuse interstitial and alveolar opacities, may represent pulmonary edema or infection. 2. Interval placement of enteric tube with tip projecting over the proximal stomach and side port wi thin the distal esophagus. Recommend advancement. Electronically signed by: Familia Dixon DO (02/04/2021 6:49 AM) [facility]
[2021-02-04 06:59] LABS: ALBUMIN 3.5 g/dL (3.4-5.0); ALBUMIN/GLOBULIN RATIO 0.9 (1.0-1.7); TOTAL BILIRUBIN 0.3 mg/dL (0.2-1.0); TOTAL PROTEIN 7.3 g/dL (6.4-8.2)
[2021-02-04 07:00] LABS: BASO # 0.1 x10^3/uL (0.0-0.2); BASO % 1 % (0-3); EOS # 0.2 x10^3/uL (0.0-0.7); EOS % 3 % (0-3); HEMATOCRIT 31.6 % (36.0-47.0); HEMOGLOBIN 9.9 g/dL (12.0-15.5); LYMPH # 4.3 x10^3/uL (1.0-4.8); LYMPH % 53 % (24-48); MEAN CORPUSCULAR HEMOGLOBIN 30 pg (25-35); MEAN CORPUSCULAR HGB CONC 31 g/dL (31-37); MEAN CORPUSCULAR VOLUME 94 fL (79-100); MONO # 0.5 x10^3/uL (0.0-1.1); MONO % 6 % (0-9); NEUT # 3.1 x10^3uL (1.8-7.7); NEUT % 38 % (31-73); PLATELET COUNT 173 x10^3/uL (140-400); RED BLOOD COUNT 3.35 x10^6/uL (3.50-5.40); RED CELL DISTRIBUTION WIDTH 15.8 % (11.5-14.5); WHITE BLOOD COUNT 8.1 x10^3/uL (4.0-11.0)
[2021-02-04] MEDS ORDERED: MIDAZOLAM HCL 50 MG in IV NORMAL SALINE 50ML 50 ML IV ONE (07:30)
--- NOTE | 2021-02-04 07:34 | RAD ---
STUDY: CT head and cervical spine without contrast INDICATION: Unwitnessed fall. Forehead hematoma. COMPARISON: None. TECHNIQUE: Axial CT imaging through the head and cervical spine without the use of intravenous contra st. Sagittal and coronal reformats were obtained. One or more of the following individualized dose reduction techniques were utilized for this examinat ion: 1. Automated exposure control 2. Adjustment of the mA and/or kV according to patient size 3. Use of iterative reconstruction technique. FINDINGS: CT head: Study degradation in part on account of motion. No acute intracranial hemorrhage. No mass effect, midline shift or hydrocephalus. No CT evidence for an acute cortical infarction. White matter findings which are nonspecific but most frequently on account of chronic microvascular i schemic change. Intracranial calcific atherosclerosis. Left scalp injury with a localized hematoma at the left frontal region. No depressed calvarial fractu re. CT cervical spine: Mild motion degradation. Noting osteopenia no acute cervical spine fracture. Reversal of cervical lordosis centered at C4-C5. Severe discogenic arthrosis at C4-C5. Less pronounced discogenic arthrosis at C3-C4, C5-C6 and C6-C7. Grade 1 anterolisthesis of C3 on C4. Multilevel facet arthrosis and uncovertebral joint hypertrophy. No evidence for severe central canal stenosis. No paraspinous hematoma. Nasogastric and endotracheal intubation. IMPRESSION: CT head: 1. Motion degradation. Diagnostic utility is mostly maintained. 2. Scalp injury on the left without an associated depressed calvarial fracture or acute intracranial hemorrhage. CT cervical spine: 1. Mild motion degradation. Taking this into consideration in addition to osteopenia no acute fractu re. No paraspinous hematoma is identified to suggest occult osseous injury. 2. Multilevel spondylosis greatest at C4-C5. No evidence for severe central canal stenosis. Electronically signed by: LOU SANTIZO MD (02/04/2021 7:32 AM) [facility]
[2021-02-04 07:51] LABS: BGAS PH 7.26 (7.35-7.45)
--- NOTE | 2021-02-04 07:55 | RAD ---
EXAMINATION: CT chest, abdomen and pelvis with IV contrast. INDICATION:85 years, Female, falling down, left for head hematoma. Evaluate for intrathoracic and abd ominal injury. TECHNIQUE: Axial CT images of the chest, abdomen and pelvis were obtained. Coronal and sagittal refor matted performed. COMPARISON: None. Exposure: One or more of the following individualized dose reduction techniques were utilized for thi s examination: 1. Automated exposure control 2. Adjustment of the mA and/or kV according to patient size 3. Use of iterative reconstruction technique. FINDINGS: CHEST: Visualized thyroid and esophagus are unremarkable. Enteric tube seen within the esophagus with the ti p terminates within the proximal stomach. Cardiomegaly with trace pericardial effusion. Mild coronary artery atherosclerotic calcifications. Ascending aortic aneurysm measures up to 5.0 cm. Mild atheros clerotic calcifications of the thoracic aorta. Pulmonary artery is normal in caliber. No intrathoraci c lymphadenopathy by size criteria. Few calcified mediastinal lymph nodes. Endotracheal tube tip locates above the byron. Central airways are patent. Moderate right and small left pleural effusions with associated compressive atelectasis. Diffuse interlobular septal thickenin g with a mosaic attenuation and groundglass opacities, particularly in the left upper lobe. Bibasilar subsegmental atelectasis. No suspicious pulmonary nodule. Diffuse bronchial wall thickening in the l ower lobes. No pneumothorax. ABDOMEN/PELVIS: No hepatomegaly. Normal homogeneous enhancement of the liver with no suspicious focal hepatic lesion. Moderate periportal edema. Unremarkable gallbladder. No biliary ductal dilation. Calcified granuloma s in the spleen. Moderate atrophic pancreatic parenchyma. Nodular thickening of the left gland withou t discrete nodule. The right adrenal gland is normal. No hydronephrosis or nephrolithiasis in either kidney. Moderate aortoiliac atherosclerotic calcifications. No significant luminal narrowing or dilat ion. Distended intrahepatic IVC. Portal vein and mesenteric arteries are patent. No abdominopelvic ly mphadenopathy by size criteria. Small abdominal ascites. No pneumoperitoneum. No bowel obstruction or wall thickening. Underdistended urinary bladder with Blackman's catheter in place and nondependent gas. Unremarkable uterus. No suspicious pelvic masses. MUSCULOSKELETAL: Lucent line in the lateral aspect of the left third rib (series 4 image 25). Diffuse osteopenia. Sarah re multilevel degenerative changes in the spine. Moderate dextroscoliosis of lumbar spine. IMPRESSION: 1. Lucent line along the lateral aspect of the left third rib, may be artifactual from motion artifac t or nondisplaced fracture. Consider correlation with point of tenderness. 2. Otherwise, no acute traumatic injury to the chest, abdomen or pelvis. 3. Findings of fluid overload with moderate to severe pulmonary edema, moderate right and small left pleural effusions, periportal edema and trace amount of abdominal ascites. Underlying pneumonia in le ft upper lobe cannot be excluded. 4. Ascending aortic aneurysm measures up to 5.0 cm in diameter. 5. Other chronic/incidental finding, as described above. Electronically signed by: Graciela Anton MD (02/04/2021 7:53 AM) [id number]
--- NOTE | 2021-02-04 08:18 | EKG ---
[address] [address] Test Date: 2021-02-04 Test Time: 08:03:24 Pat Name: RADHA PEPPER Department: Room: Gender: F [employer] Tester: JUSTINA : 1935 Requested By: BANDAR LENZ Order Number: [id number] Reading MD: Measurements Intervals Pearson Rate: 99 P: 64 FL: 180 QRS: -52 QRSD: 110 T: 105 QT: 376 QTc: 488 Interpretive Statements SINUS RHYTHM ABNORMAL LEFT AXIS DEVIATION LVH WITH REPOLARIZATION ABNORMALITY QRS(T) CONTOUR ABNORMALITY CONSIDER ANTEROLATERAL MYOCARDIAL DAMAGE PROLONGED QT ABNORMAL ECG RI6.02 No previous ECG available for comparison
--- NOTE | 2021-02-04 08:20 | EKG ---
[address] [address] Test Date: 2021-02-04 Test Time: 06:02:32 Pat Name: RADHA PEPPER Department: Room: Gender: F [employer] Press Laborer: : 1935 Requested By: BANDAR LENZ Order Number: [id number] Reading MD: Measurements Intervals [place] Rate: 28 P: [place]: QRS: -66 QRSD: 118 T: 87 QT: 588 QTc: 400 Interpretive Statements IRREGULAR RHYTHM, NO P-WAVE FOUND ABNORMAL LEFT AXIS DEVIATION LEFT VENTRICULAR HYPERTROPHY QRS(T) CONTOUR ABNORMALITY CONSIDER ANTEROSEPTAL MYOCARDIAL DAMAGE T ABNORMALITY IN ANTERIOR LEADS HIGH LATERAL LEADS ABNORMAL ECG RI6.02 No previous ECG available for comparison
--- NOTE | 2021-02-04 08:21 | EKG ---
[address] [address] Test Date: 2021-02-04 Test Time: 06:22:28 Pat Name: RADHA PEPPER Department: Room: Gender: F Enrollment Counselor: : 1935 Requested By: BANDAR LENZ Order Number: [id number] Reading MD: Measurements Intervals [place] Rate: 118 P: -52 HI: 164 QRS: -58 QRSD: 112 T: 131 QT: 318 QTc: 448 Interpretive Statements SINUS TACHYCARDIA VENTRICULAR PREMATURE COMPLEX(ES) ABNORMAL LEFT AXIS DEVIATION LVH WITH REPOLARIZATION ABNORMALITY QRS(T) CONTOUR ABNORMALITY CONSIDER ANTEROSEPTAL MYOCARDIAL DAMAGE ABNORMAL ECG RI6.02 No previous ECG available for comparison
[2021-02-04] MEDS ORDERED: FUROSEMIDE 40 MG/4 ML VIAL IVP ONE (08:30)
[2021-02-04 08:32] LABS: % BANDS 2 % (0-9); % EOS 1 % (0-5); % LYMPHS 64 % (24-48); % METAS 1 % (0-0); % MONOS 2 % (0-10); % SEGS 30 % (35-66)
[2021-02-04 08:33] LABS: PLT ESTIMATE ADEQUATE (ADEQUATE)
[2021-02-04 09:27] LABS: BGAS PH 7.29 (7.35-7.45)
[2021-02-04] MEDS ORDERED: MIDAZOLAM HCL PF 5 MG/5 ML VIAL. IV ONE (09:45)
== END 2021-02-04 10:38 | disposition short-term general hospital (02) ==
LOC: ER 05:59
DX: I46.9 Cardiac arrest, cause unspecified (principal); J96.01 Acute respiratory failure with hypoxia; S00.83XA Contusion of other part of head, initial encounter; S00.91XA Abrasion of unspecified part of head, initial encounter; S60.512A Abrasion of left hand, initial encounter; I50.9 Heart failure, unspecified; Z79.899 Other long term (current) drug therapy; Z88.0 Allergy status to penicillin; X58.XXXA Exposure to other specified factors, initial encounter; Y93.89 Activity, other specified; Y92.89 Other specified places as the place of occurrence of the external cause; Y99.8 Other external cause status
CPT/HCPCS: 31500; 36415; 36600; 70450; 71045; 71260; 72125; 74177; 80053; 80307; 82803; 82947; 83605; 83880; 84484; 85007; 85025; 85610; 85730; 87040; 93005; 96374; 99291; J0171; J0461; J1940; J2250; J3010; J7040; Q9967; 94002